=== PATIENT | female | born 1985 | race Asian ===

== ENCOUNTER 2024-10-25 00:33 | Emergency (ER) | payer BC, SELFPAY ==
[2024-10-25] VITALS (7 sets, daily range): BP systolic 96–113; BP diastolic 64–74; PULSE 68–84; RESP 13–21; TEMP 36.5; O2SAT 97–100
--- NOTE | ~2024-10-25 | CT_ITS ---
Clinical Indication: Shortness of breath CT Scan of the Chest with Contrast: Technique: Contiguous sections were acquired throughout the chest after intravenous administration of 100 cc of Omnipaque 350. Dose reduction technique was used on this scan by utilizing automated expos ure control and iterative reconstruction technique. The dose-length product (DLP) was 178.84 mGy-cm. Findings: There is no evidence of any significant mediastinal, hilar or axillary lymphadenopathy. There is no f illing defect in the pulmonary arterial tree to suggest pulmonary embolus. There is no evidence of ao rtic dissection or aneurysm. There is no evidence of pleural or pericardial effusion. There is patchy left lower lobe consolidation, with probable minimal involvement in the superomedial right lower lobe. Findings are compatible with pneumonia. Images through the upper abdomen reveal no abnormalities. Impression: No evidence of pulmonary embolus, aortic dissection, or aortic aneurysm. Patchy pneumonia involving the left lower lobe and with additional mild involvement in the right lowe r lobe. Reviewed, dictated and finalized at [facility]. [place] WORKER Impression: No evidence of pulmonary embolus, aortic dissection, or aortic aneurysm. Patchy pneumonia involving the left lower lobe and with additional mild involve ment in the right lower lobe.
--- NOTE | ~2024-10-25 | XR_ITS ---
Clinical Indication: Shortness of breath PA and lateral views of the chest: Comparison: None Findings: The lungs are clear, without evidence of focal consolidation or pleural effusion. Cardiome diastinal silhouette is within normal limits. Bones and soft tissues are unremarkable. Impression: Clear lungs. Possible COPD. Reviewed, dictated and finalized at location . [facility] Impression: Clear lungs. Possible COPD.
--- NOTE | 2024-10-25 01:29 | ECG_ITS ---
Test Date: 2024-10-25 02:00:47 Measurements Intervals Baker Rate: 76 P: 68 NE: 129 QRS: 62 QRSD: 84 T: 18 QT: 351 QTc: 397 Interpretive Statements SINUS RHYTHM NONSPECIFIC T-WAVE ABNORMALITY No previous ECG available for comparison Electronically Signed On 10-25-2024 11:42:52 [employer]ING [employer]ATION ATTENDANT by Catarino Cline
[2024-10-25 01:49] LABS: Basophils Percent Auto 0.2 % (0.2-1.2); Eosinophils Absolute Auto 0.1 K/mm3 (0-0.3); Eosinophils Percent Auto 1.6 % (0-4.4); Hemoglobin 11.8 g/dL (12.0-15.0); Immature Granulocyte Absolute 0.03 K/mm3 (0.00-0.031); Immature Granulocyte Percent A 0.3 % (0-0.5); Lymphocytes Absolute Auto 2.97 K/mm3 (0.9-3.2); Lymphocytes Percent Auto 33.2 % (18.3-44.2); Mean Corpuscular HGB Conc 33.7 g/dl (32-36); Mean Corpuscular Hemoglobin 27.3 pg (26-34); Mean Platelet Volume 8.7 fl (7.4-10.4); Monocytes Absolute Auto 0.7 K/mm3 (0.1-0.6); Monocytes Percent Auto 7.3 % (2.6-8.5); Neutrophils Absolute Auto 5.1 K/mm3 (1.3-6.7); Neutrophils Percent Auto 57.4 % (45.5-73.1); Platelet Count Result 272 k/mm3 (150-375); Red Blood Count 4.32 M/mm3 (4.2-5.4); Red Cell Distribution Width 12.6 % (11.5-14.5)
[2024-10-25 02:08] LABS: Alanine Aminotransferase 29 U/L (6-35); Albumin Level 3.8 g/dL (3.5-5.1); Alkaline Phosphatase 56 U/L (38-126); Anion Gap 5 mmol/L (4-12); Aspartate Amino Transferase 38 U/L (14-36); Bilirubin,Total 0.3 mg/dL (0.2-1.3); Blood Urea Nitrogen 10 mg/dL (7-17); Carbon Dioxide 24 mmol/L (22-30); Chloride 108 mmol/L (98-107); Estimated CRCL calculation 106 ml/min; Estimated Glomerular Filt Rate > 60; Glucose 103 mg/dL (65-110); Potassium 3.7 mmol/L (3.4-5.0); Sodium 137 mmol/L (137-145)
--- NOTE | 2024-10-25 02:37 | ED.SOB ---
HPI - SOB/Dyspnea General Chief Complaint: Shortness of Breath/Dyspnea Stated Complaint: shortness of breath Time Seen by Provider: 10/25/24 01:50 Source: patient and family ( mother) Mode of arrival: ambulatory Limitations: no limitations History of Present Illness HPI Narrative: patient presents with persistent cough as well as shortness of breath that seemed to worsen tonight. In addition she has been having chest pain. She denies any underlying cardiac or respiratory conditions including no history of asthma. She tried a steam shower. She was recently diagnosed with pneumonia through [facility] urgent care On Wednesday although this was based on physical exam and symptoms as an x-ray had not been performed. She was discharged with prescription for doxycycline which she has been taking. During urgent care visit PCR testing for viruses had been performed and was negative as was strep test. Her dyspnea and cough seem to be worsening however and has been productive of phlegm tonight. she can not sleep as it feels like there is a weight on her chest and with the nonstop coughing. She has also been using Tessalon Perles and guaifenesin. No bilateral or unilateral leg swelling. No hemoptysis. No surgery or trauma in the past 4 weeks requiring general anesthesia. No underlying DVT or PE diagnosis previously. She is on hormone (kathleen) to regulate her menses. Related Data Allergies Allergy/AdvReac Type Severity Reaction Status Date / Time Penicillins Allergy Intermediate Unknown Verified 10/25/24 01:39 promethazine Allergy Intermediate Unknown Verified 10/25/24 01:39 [facility] Surgical History Surgical History History of tubal ligation Social History Social History (Updated 10/26/24 @ 11:28 by Maria A Delacruz MD) Living arrangements: with family Additional living arrangements comments: Spouse, child Exam Narrative: GENERAL: Well-appearing, well-nourished, and in no acute distress. HEAD: Normocephalic, atraumatic. EYES: Non injected, non icteric ENT: Nares clear, no rhinorrhea or epistaxis. NECK: Supple. CHEST: Speaking in full sentences. No respiratory distress. Coughs with large breaths during auscultation. There is some evidence of coarse bilateral breath sounds. HEART: Regular rate and rhythm. . ABDOMEN: Soft, nondistended. EXTREMITIES: Normal range of motion. No lower extremity edema. SKIN: Warm, dry, no rash. NEURO: No focal deficits. Alert and oriented x3. PSYCH: Normal mood and affect. Course Vital Signs Vital signs: Vital Signs Temperature 97.7 F 10/25/24 00:38 Pulse Rate 82 10/25/24 00:38 Respiratory Rate 18 10/25/24 00:38 Blood Pressure 98/64 L 10/25/24 00:38 Pulse Oximetry 97 10/25/24 00:38 Oxygen Delivery Room Air 10/25/24 00:38 Temperature 97.7 F 10/25/24 00:38 Pulse Rate 77 10/25/24 06:00 Respiratory Rate 16 10/25/24 06:00 Blood Pressure 108/70 10/25/24 06:00 Pulse Oximetry 100 10/25/24 06:00 Oxygen Delivery Room Air 10/25/24 01:36 MDM - SOB/Dyspnea MDM Narrative Medical decision making narrative: patient presents with shortness of breath, chest pain, and cough. She was diagnosed with pneumonia at an urgent care on Wednesday based on clinical symptoms and physical exam. No x-ray had been performed. She had tested negative for strep as well as viral panel on PCR performed there. She has been taking Tessalon Perles, guaifenesin, and doxycycline with minimal change. in the emergency department she is afebrile with vital signs notable for mild hypotension initially although with MAP 75mmHg and repeat is improved; Suspect this is baseline due to her body habitus. PERC Rule Age greater than or equal to 50:0 HR greater than or equal to 100:0 O2 sat room air <95%:0 Unilateral leg swellin Hemoptysis:0 Recent surgery or trauma less than 4 wks ago requiring tx with general anesthesia:0 Prior PE or DVT:0 Hormone use (OCP, HRT or estrogenic hormone use in M/F patients):1. Will proceed with D-dimer. Dimer is elevated greater than 1 thus cannot apply YEARS criteria and will proceed with CT imaging. Patient is given albuterol treatment as well as cough medicine. CT negative for PE but does demonstrate pneumonia. On reassessment patient states that the albuterol helps significantly. We discussed that patient should continue to take her medications as prescribed including her antibiotic. Although a cough suppressant is not typically recommended, her frequent coughing is limiting her ability to sleep and this is also important for rest and recovery so will prescribe this to be used q.h.s.. Discussed this extensively with her and she verifies understanding. Albuterol also prescribed. We discussed that the natural history and progression of pneumonia can often lingering can take a long time for symptoms to resolve. She verifies understanding. She is provided work note for several days. Discharged in stable condition. Differential Diagnosis Differential diagnosis: Likely community acquired pneumonia, pulmonary embolism and other ( Acute viral syndrome, bronchitis) Lab Data Attestation: I reviewed the patient's lab results. Lab results narrative: anemia. Normal renal function. No marked electrolyte abnormalities. 10/25/24 01:44 10/25/24 01:44 Labs: Lab Results 10/25/24 10/25/24 Range/Units 01:44 03:53 WBC 9.0 (4.5-10.0) K/mm3 RBC 4.32 (4.2-5.4) M/mm3 Hgb 11.8 L (12.0-15.0) g/dL Hct 35.0 L (37.0-47.0) % MCV 81.0 (80-100) fl MCH 27.3 (26-34) pg MCHC 33.7 (32-36) g/dl RDW 12.6 (11.5-14.5) % Plt Count 272 (150-375) k/mm3 MPV 8.7 (7.4-10.4) fl Immature Gran % (Auto) 0.3 (0-0.5) % Neut % (Auto) 57.4 (45.5-73.1) % Lymph % (Auto) 33.2 (18.3-44.2) % [place] % (Auto) 7.3 (2.6-8.5) % Eos % (Auto) 1.6 (0-4.4) % Baso % (Auto) 0.2 (0.2-1.2) % Lymph # (Auto) 2.97 (0.9-3.2) K/mm3 [place] # (Auto) 0.7 H (0.1-0.6) K/mm3 Eos # (Auto) 0.1 (0-0.3) K/mm3 Baso # (Auto) 0.0 (0.0-0.1) K/mm3 Abs Immat Gran (auto) 0.03 (0.00-0.031) K/mm3 Absolute Neuts (auto) 5.1 (1.3-6.7) K/mm3 Absolute Nucleated RBC 0.000 (0.0-0.012) K/mm3 Nucleated RBC % 0.0 (0.0-0.2) % PT 13.5 (11.1-14.7) Seconds INR 1.0 APTT 31.0 (22.3-36.8) Seconds D-Dimer 1.23 H (<0.48) ug/mL Sodium 137 (137-145) mmol/L Potassium 3.7 (3.4-5.0) mmol/L Chloride 108 H (98-107) mmol/L Carbon Dioxide 24 (22-30) mmol/L Anion Gap 5 (4-12) mmol/L BUN 10 (7-17) mg/dL Creatinine 0.50 L (0.7-1.0) mg/dL Estim Creat Clear Calc 106 ml/min Estimated GFR > 60 (59 - ) Glucose 103 (65-110) mg/dL Calcium 9.0 (8.4-10.2) mg/dL Total Bilirubin 0.3 (0.2-1.3) mg/dL AST 38 H (14-36) U/L ALT 29 (6-35) U/L Alkaline Phosphatase 56 (38-126) U/L Total Protein 7.0 (6.3-8.2) g/dL Albumin 3.8 (3.5-5.1) g/dL Imaging Data Attestation: I personally reviewed and interpreted this imaging study as follows: My impression: Chest x-ray clearly without evidence of acute intrathoracic process on my independent interpretation. Notably, does not appear to be consolidation consistent with pneumonia. Radiologist's impression: Clear lungs. Possible COPD. No evidence of pulmonary embolus, aortic dissection, or aortic aneurysm. Patchy pneumonia involving the left lower lobe and with additional mild involvement in the right lower lobe. ECG Data EKG #1: Attestation: I personally reviewed and interpreted this ECG as follows: ECG completion date: 10/25/24 ECG completion time: 02:00 Interpretation: normal sinus rhythm at a rate of 76 beats per minute. NM interval 129. QRS 84. QT/QTC 351/382. Good R-wave progression across the precordial leads. T-wave inversion isolated to lead 3 but otherwise upright in normal in contiguous inferior leads 2 and AVF. No other T-wave inversions in precordial leads V3 through V6. Normal axis. Discharge Plan Discharge Clinical Impression: Shortness of breath, Normocytic anemia, Pneumonia involving left lung, Right lower lobe pneumonia Patient Disposition: Home, Self-Care Condition: Stable Instructions: Antibiotic Form, Community Acquired Pneumonia (DC), Anemia (ED), Shortness of Breath (ED) Additional Instructions: You do indeed have evidence of a pneumonia on your CT scan, at the base of lungs on each side. Pneumonia notoriously takes awhile to recover from. Continue to take the antibiotic prescribed. Half of patients are still symptomatic at 30 days, with a significant minority of patients experiencing chest pain, malaise or mild shortness of breath even 2 to 3 months after treatment. Rest and maintain your hydration. You can continue to take the other medications that were prescribed to help with your shortness of breath. in general, cough suppressant medications are not recommended as this suppresses the cough reflex which is protective mechanism to prevent you from developing or experiencing worsening of your pneumonia. however, given that it is important to rest when you have pneumonia, will prescribe this which can use at night so you can get sleep. Follow-up with your primary care physician. If you do not have a name of a doctor is listed below. Return to the emergency department with any new or worsening symptoms. Patient Language: Indonesian Prescriptions: New dextromethorphan polistirex 30 mg/5 mL suspension,extended rel 12 hr 10 ml PO QHS PRN (Reason: cough) Qty: 89 0RF albuterol sulfate 90 mcg/actuation HFA aerosol inhaler 1 inh inhalation QID PRN (Reason: shortness of breath or wheezing) Qty: 6.7 0RF Follow-up/Referrals: Darwin Arellano [Other] UNKNOWN,DOCTOR [Primary Care Provider] - Stand Alone Forms: Work/School Release IP Time of Disposition: 06:47
[2024-10-25] MEDS: DEXTROMETHORPHAN POLISTIREX 60 MG/10 ML SYRINGE PO (03:09)
[2024-10-25 04:10] LABS: Prothrombin Time 13.5 Seconds (11.1-14.7)
[2024-10-25 04:27] LABS: D Dimer 1.23 ug/mL (<0.48)
[2024-10-25] MEDS: ALBUTEROL SULFATE NEB 2.5 MG/3 ML INH INHALATION (04:51)
== END 2024-10-25 07:20 | disposition home or self-care (01) ==
PROVIDERS: Emergency Provider Student in an Organized Health Care Education/Training Program
DX: J18.9 Pneumonia, unspecified organism (principal); D64.9 Anemia, unspecified
CPT/HCPCS: 36415; 71046; 71275; 80053; 85025; 85380; 85610; 85730; 93005; 94640; 99284; A9270; Q9967